=== PATIENT | male | born 1950 | race Caucasian/White ===

== ENCOUNTER 2017-11-10 10:02 | Outpatient (CLI) | payer MEDICARE ==
[~2017-11-10 10:02] MED LIST: ASPI-1265 PO; BIMA2.5D RIGHTEYE; COU1T PO; KETO5DRO82 RIGHTEYE; LORA10TA7 PO; LOSA50TA3 PO; PANT-47 PO; ZOC40T PO
== END 2017-11-10 23:59 | disposition home or self-care (01) ==
LOC: RAD 10:02
PROVIDERS: ATTEND Family Medicine
DX: N28.1 Cyst of kidney, acquired (principal); R31.0 Gross hematuria; I10 Essential (primary) hypertension; J44.9 Chronic obstructive pulmonary disease, unspecified
CPT/HCPCS: 76775

== ENCOUNTER 2018-12-15 14:12 | Outpatient (CLI) | payer MEDICARE ==
[~2018-12-15] VITALS: Ht 165.1 cm; Wt 65.8 kg
[2018-12-15 14:51] LABS: ABG BASE EXCESS 1.5 mmol/L (-2.0-3.0); ABG HCO3 26.2 mmol/L (22.0-26.0); ABG PCO2 (T) 41.5 mmHg (35.0-48.0); ABG PH (T) 7.418 (7.350-7.450); ABG PO2 (T) 85.3 mmHg (83-108); FMetHb 0.3 % (0.3-1.12); FO2Hb 94.8 % (94-100); TOTAL HEMOGLOBIN 14.7 G/dl (14.0-18.0)
[2018-12-15] MEDS ORDERED: albuterol 2.5 MG/3 ML nebule NEB ONE (15:05)
== END 2018-12-15 23:59 | disposition home or self-care (01) ==
LOC: RT 14:12
PROVIDERS: ATTEND Surgery Vascular Surgery
DX: I71.4 Abdominal aortic aneurysm, without rupture (principal); J44.9 Chronic obstructive pulmonary disease, unspecified; R06.09 Other forms of dyspnea; F17.210 Nicotine dependence, cigarettes, uncomplicated; Z88.1 Allergy status to other antibiotic agents; Z88.2 Allergy status to sulfonamides; Z79.82 Long term (current) use of aspirin; Z79.899 Other long term (current) drug therapy; Z88.8 Allergy status to other drugs, medicaments and biological substances
CPT/HCPCS: 36600; 82803; 85018; 94060; 94727; 94729; 94760

== ENCOUNTER → 2021-03-31 | Emergency (ER) | payer MEDICARE ==
[~2021-03-31] VITALS: Ht 165.1 cm; Wt 68.2 kg
[~2021-03-31] MED LIST changes: +iohexol 350MG/ML 100ml bottle IV ONE; +magnesium 2GM in 50ml NS 50 ML IV ONE; +morphine 4 MG/ML inj SYRINge IV ONE; +niCARDipine-NS 40mg/200ml IVPB 200 ML IV PRN; +ondansetron/PF 4mg/2ml inj IV ONE
--- NOTE | 2021-03-31 07:28 | NUR ---
to ct w/ rn accompaniment
[2021-03-31 08:13] LABS: BASOPHILS % (AUTO) 0.3 % (0-1); EOSINOPHILS % (AUTO) 0.3 % (0-6); HEMATOCRIT 42.1 % (42.0-52.0); HEMOGLOBIN 14.2 g/dl (14.0-17.9); LYMPHOCYTES # (AUTO) 0.7 X10'3 (1.1-4.8); LYMPHOCYTES % (AUTO) 6.3 % (21-51); MEAN CORPUSCULAR HGB CONC 33.7 g/dL (33.0-36.5); MEAN CORPUSCULAR VOLUME 86.2 FL (78-98); MONOCYTES # (AUTO) 0.9 X10'3 (0-0.9); MONOCYTES % (AUTO) 7.7 % (2-12); NEUTROPHILS % (AUTO) 85.4 % (42-75); PLATELET COUNT 218 X10'3 (140-440); RED BLOOD COUNT 4.88 X10'6 (4.70-6.10); WHITE BLOOD COUNT 11.7 X10'3 (4.5-11.0)
--- NOTE | 2021-03-31 08:21 | NUR ---
rhythm changed noted; ekg being obtained
[2021-03-31 08:25] LABS: ALANINE AMINOTRANSFERASE 29 U/L (12-78); ALBUMIN 2.8 G/DL (3.4-5.0); ALBUMIN/GLOBULIN RATIO 0.7 (1.1-1.5); ALKALINE PHOSPHATASE 69 IU/L (46-116); ANION GAP 3 (8-16); ASPARTATE AMINO TRANSFERASE 24 U/L (10-37); BILIRUBIN,TOTAL 1.4 MG/DL (0.1-1.0); BLOOD UREA NITROGEN 16 MG/DL (7-18); BUN/CREATININE RATIO 17.2 (5.4-32.0); CALCIUM 8.2 MG/DL (8.5-10.1); CHLORIDE 92 MMOL/L (99-107); CREATININE 0.93 MG/DL (0.60-1.10); GLUCOSE 154 MG/DL (70-104); MAGNESIUM 1.3 MG/DL (1.5-2.4); POTASSIUM 4.3 MMOL/L (3.5-5.1); SODIUM 123 MMOL/L (135-145); TOTAL CARBON DIOXIDE 27.7 MMOL/L (24-32); eGFR 80 ML/MIN
[2021-03-31] MEDS: esmolol/sodium cl bag 250 ML IV SCH ×2 (09:08→15:28)
--- NOTE | 2021-03-31 09:30 | NUR ---
Patient currently afib with rvr, rate 130's. Started on esmolol gtt per md at 50 mcg. bp's 170's systolic. Denies cp but a little sob with sats as low as 90% room air when into afib. 2liters nasal cannula with sats up to 95%
[2021-03-31 10:38] LABS: CLARITY,URINE CLEAR (Clear); COLOR,URINE STRAW (Yellow); GLUCOSE, URINE NEGATIVE (Neg); KETONES,URINE NEGATIVE (Neg); LEUKOCYTE ESTERASE ,URINE NEGATIVE (Neg); NITRITES, URINE NEGATIVE (Neg); OCCULT BLOOD,URINE SMALL (Neg); PH,URINE 7.5 (4.8-8.0); PROTEIN,URINE >=300 mg/dl (Neg); UA COLLECTION TYPE VOIDED
[2021-03-31 10:43] LABS: BACTERIA,URINE NONE SEEN /HPF (Neg); WBC,URINE 0-4 /HPF (0-4)
[2021-03-31 10:44] LABS: HYALINE CASTS 0-3 /LPF (NEGATIVE); SQUAMOUS EPITHELIAL CELL,UR NONE SEEN /LPF (FEW)
--- NOTE | 2021-03-31 11:00 | NUR ---
bP's still elevated, 160-170 systolic, informed no additional tx yet, wants to try to titrate the esmolol a little more first, is aware we may not be able to acheive this with esmolol as his heart rate is already in the 60's. will continue to monitor
[2021-03-31 15:45] VITALS: BP 128/56
--- NOTE | 2021-03-31 15:47 | NUR ---
Waiting air transport to [place] with [facility] in 5 mins. Patient has updated his family. Report given to Niranjan RN. belongings placed in bag including jeans, shirt shoes, socks and wallet. Has bilateral hearing aids in place.
--- NOTE | 2021-03-31 16:40 | NUR ---
*Patient gave visitor Ramya $75.00 from his wallet prior to leaving
== END | disposition short-term general hospital (02) ==
LOC: ER 06:57
DX: I71.9 Aortic aneurysm of unspecified site, without rupture (principal); Z20.822 Contact with and (suspected) exposure to COVID-19; E87.1 Hypo-osmolality and hyponatremia; R61 Generalized hyperhidrosis; E11.9 Type 2 diabetes mellitus without complications; Z79.01 Long term (current) use of anticoagulants; Z95.5 Presence of coronary angioplasty implant and graft; Z90.49 Acquired absence of other specified parts of digestive tract; Z87.891 Personal history of nicotine dependence
CPT/HCPCS: 36415; 71275; 74174; 80053; 81001; 83735; 85025; 85610; 86885; 86900; 86901; 87635; 93005; 96365; 96366; 96368; 99291; 99292; C9803; J2270; J2405; J3475; Q9967; J3490